=== PATIENT | male | born 1995 | race African-American/Black ===

== ENCOUNTER 2021-07-12 13:21 | Emergency (ER) | payer OTHER ==
[2021-07-12 14:33] LABS: Hematocrit 47.5 % (39.6-49.0); Lymphocytes % 20.2 % (15.3-44.8); MPV 8.1 fL (7.6-11.3); RBC Red Blood Cell Count 5.67 M/uL (4.33-5.43)
[2021-07-12 14:36] LABS: Protime INR 1.12
[2021-07-12 14:59] LABS: ALT/SGPT 18 U/L (12-78); AST/SGOT 9 U/L (15-37); Albumin 4.8 g/dL (3.4-5.0); Alkaline Phosphatase 42 U/L (45-117); BUN Blood Urea Nitrogen 14 mg/dL (7-18); Bicarbonate 28 mmol/L (21-32); Bilirubin Direct 0.3 mg/dL (0-0.2); Bilirubin Total 1.2 mg/dL (0.2-1.0); Glucose Level 97 mg/dL (74-106); Potassium 4.2 mmol/L (3.5-5.1); Sodium Level 139 mmol/L (136-145)
[2021-07-12 15:58] LABS: Barbiturates NEGATIVE (NEGATIVE); Benzodiazepines NEGATIVE (NEGATIVE); Cocaine NEGATIVE (NEGATIVE); METHAMPHETAM NEGATIVE (NEGATIVE); Methadone NEGATIVE (NEGATIVE); Opiates NEGATIVE (NEGATIVE); Phencyclidine NEGATIVE (NEGATIVE); THC Cannibis POSITIVE (NEGATIVE)
--- NOTE | 2021-07-12 17:59 | ER ---
Nurse's Notes [facility] Name: Minh Bolaños Age: 26 yrs Sex: Male : 1995 Arrival Date: 07/12/2021 Time: 13:22 Bed 7 Private MD: Diagnosis: Suicidal ideations Presentation: 07/12 13:41 Chief complaint: EMS states: Had a disagreement with family at home and went into the ww bathroom and tried to hang hisself with a jump rope. Family called EMS. Patient has scratches on bilateral arms and states they are from running through the bushes. Coronavirus screen: Client denies travel out of the [place] in the last 14 days. Ebola Screen: Patient denies travel to an Ebola-affected area in the 21 days before illness onset. Initial Sepsis Screen: Does the patient meet any 2 criteria? No. Patient's initial sepsis screen is negative. Does the patient have a suspected source of infection? No. Patient's initial sepsis screen is negative. Risk Assessment: Do you want to hurt yourself or someone else? Patient reports desire/thoughts of hurting themselves or someone else. Provider notified. Onset of symptoms was July 12, 2021. 13:41 Method Of Arrival: EMS: [facility] ww 13:41 Acuity: ESA 2 ww Historical: - Allergies: 13:43 No Known Allergies; ww - Immunization history:: Adult Immunizations up to date. - Social history:: Smoking status: Patient reports the use of cigarette tobacco products, smokes one-half pack cigarettes per day. Screenin:43 Abuse screen: Denies threats or abuse. Denies injuries from another. Nutritional ww screening: No deficits noted. Tuberculosis screening: No symptoms or risk factors identified. Fall Risk None identified. Assessment: 14:01 General: Appears in no apparent distress. Behavior is cooperative. Pain: Denies pain. ww Neuro: Level of Consciousness is awake, alert, obeys commands, Oriented to person, place, time, situation, Moves all extremities. Speech is normal. Cardiovascular: Capillary refill < 3 seconds Patient's skin is warm and dry. Chest pain is denied. Respiratory: Airway is patent Respiratory effort is even, unlabored, Respiratory pattern is regular, symmetrical. GI: No signs and/or symptoms were reported involving the gastrointestinal system. : No signs and/or symptoms were reported regarding the genitourinary system. EENT: No signs and/or symptoms were reported regarding the EENT system. Derm: Skin is healthy with good turgor, bilateral arm abrasion. abrasion to the right side of the neck. C-Collar placed. 14:05 Reassessment: Patient states the he has had ideas about hurting hisself but has never ww had the guts to go through with it. He is disappointed that today was a failed attempt. 15:05 Reassessment: Patient appears in no apparent distress at this time. No changes from ww previously documented assessment. Patient and/or family updated on plan of care and expected duration. Pain level reassessed. Patient is alert, oriented x 3, equal unlabored respirations, skin warm/dry/pink. safety assistant present, patient ate tuna sandwich. 16:44 Reassessment: Patient appears in no apparent distress at this time. No changes from ww previously documented assessment. Patient and/or family updated on plan of care and expected duration. Pain level reassessed. Patient is alert, oriented x 3, equal unlabored respirations, skin warm/dry/pink. safety assistant present. 17:05 Reassessment: Nurse to Nurse with Vinicio at [facility]. ww 17:27 General: mental health light oil operator at bedside with patient.. ww 18:17 Reassessment: Patient appears in no apparent distress at this time. No changes from ww previously documented assessment. Patient and/or family updated on plan of care and expected duration. Pain level reassessed. Patient is alert, oriented x 3, equal unlabored respirations, skin warm/dry/pink. Brother at bedside with patient. 07/13 06:36 General: Behavior is cooperative, flat, quiet, pt slept most of night, no complaints or as6 concerns, mother at bedside, sitter at door. Cardiovascular: JVD is absent Patient's skin is warm and dry. Respiratory: Respiratory effort is even, unlabored, Respiratory pattern is regular, symmetrical. 07:00 Reassessment: RECD REPORT FROM [facility]. 26YO BM P/W SI AND ATTEMPTED HANGING. PT bp MEDICALLY CLEARED, AWAITING TRANSFER TO PSYCH FACILITY. 08:40 Reassessment: Nurse to nurse with Jany at [facility]. jl7 13:03 Reassessment: MOT SIGNED. [facility] PENDING FOR TRANSPORT, 1 HR ETA. bp Psych: 07/12 13:59 [place] Suicide Severity Screening: In the past month, have you wished you were ww or wished you could go to sleep and not wake up? Patient responds "yes." "In the past month, have you actually had any thoughts of killing yourself?" Patient responds "yes." Based off the client's response additional [place]ard suicide severity screening questions to be further documented on paper forms. Subjective: Patient's mood is sad, Delusions are denied, Hallucinations are denied Having thoughts of suicide. Plan for suicide is to hang hisself. Objective: Patient is cooperative, guarded, Speech is soft. Interventions: Removed personal items and placed in bag. Patient placed in hospital gown. Searched person for dangerous items. Safety Checks: Personal items have been removed. Door is open. No visitors are present at this time. Patient uses on weekends. Commitment: Patient will be an involuntary commitment. 07/13 07:00 Menard Suicide Severity Screening: In the past month, have you wished you were bp or wished you could go to sleep and not wake up? Patient responds "yes." "In the past month, have you actually had any thoughts of killing yourself?" Patient responds "yes." "In your lifetime, have you ever done anything, started to do anything, or prepared to do anything to end your life?" Patient responds "yes." Patient reports suicidal intent within 3 past months. Subjective: Patient's mood is sad, Delusions are denied, Hallucinations are denied Having thoughts of suicide. Plan for suicide is HANGING. Objective: Patient is cooperative, guarded, Speech is normal, soft. Interventions: Removed personal items and placed in bag. Patient placed in hospital gown. Searched person for dangerous items. Safety Checks: Personal items have been removed. Door is open. No visitors are present at this time. Patient uses UNKNOWN. Commitment: Patient will be an involuntary commitment. Vital Signs: 07/12 13:52 BP 143 / 99; Pulse 74; Resp 18; Temp 98.9; Pulse Ox 100% ; Weight 70.31 kg (R); Height zm 5 ft. 10 in. (177.80 cm) (R); 07/13 06:35 BP 105 / 75; Pulse 68; Resp 18 S; Temp 97.1(TE); Pulse Ox 97% on R/A; as6 07/12 13:52 Body Mass Index 22.24 (70.31 kg, 177.80 cm) zm ED Course: 07/12 13:22 Patient arrived in ED. ds1 13:23 Helder Zhao PA is PHCP. cp 13:23 Helder Lau MD is Attending Physician. cp 13:40 Rizwana Bowman RN is Primary Nurse. ww 13:43 Triage completed. ww 13:43 Arm band placed on. ww 13:43 Patient has correct armband on for positive identification. Placed in gown. Bed in low ww position. Adult w/ patient. Valuables inventory done. 14:01 Patient is placed in psych hold. ww 14:23 Inserted saline lock: 20 gauge in left antecubital area, using aseptic technique. Blood zm collected. 15:00 Sitter at bedside. Patients iphone, shoes, shirt, and shorts have been put in personal 7 belongings bag with patient label and given to security. 15:21 called and spoke with Sarita from the [facility]/ she will page out the screener. eb 16:11 SARS-COV-2 RT PCR (Document "Date of Onset" if Symptomatic) Sent. mb 17:00 connected Vinicio Crook from [facility] with Rizwana Crook for nurse to nurse in attempt eb to get patient placement. 17:20 Alejandro from [facility] here to screen the patient. eb 17:[address] Black the psychiatrist sonar watchstander for [facility] with Helder Mccain for eb patient transfer consultation. 19:20 Primary Nurse role handed off by Rizwana Bowman RN mw2 19:25 attempted to get ALC from [facility] called and phone kept ringing no answer. mw2 21:45 attempted to get ALC from [facility] Ananya transferred me to intake and nobody mw2 answered. 07/13 02:17 Robe Toledo, RN is Primary Nurse. as6 07:26 Primary Nurse role handed off by Robe Toledo RN bp 07:26 Ashok Biswas, RN is Primary Nurse. bp 07:[address] [facility]. bd Administered Medications: 07/12 22:55 Drug: Ativan (LORazepam) 1 mg Route: IVP; Site: left antecubital; lg3 22:55 Follow up: Response: No adverse reaction lg3 Outcome: 17:58 ER care complete, transfer ordered by MD. umana 07/13 14:22 Patient left the ED. bp Signatures: Valerie Narayanan Demi ds1 Helder Zhao PA PA cp Ashutosh Bedoya, RN RN jl7 Ashok Biswas, RN RN bp Gina Caputo mw2 Katrina Lopez Lacie RN RN lg3 Robe Toledo RN RN as6 Nakul Coby mb7 Rizwana Bowman, RN RN Ayla Morelos Corrections: (The following items were deleted from the chart) 07/12 22:57 19:25 attempted to get ALC from [facility] called and phone kept ringing mw2 mw2
--- NOTE | 2021-07-12 17:59 | EDPHYS ---
Physician Documentation [facility] Name: Minh Bolaños Age: 26 yrs Sex: Male : 1995 Arrival Date: 07/12/2021 Time: 13:22 Bed 7 Private MD: ED Physician Helder Lau HPI: 07/12 13:55 This 26 yrs old Black Male presents to ER via EMS with complaints of Suicidal Ideation. cp 13:55 The patient presents to the emergency department with a history of a suicide gesture, cp wrapped jumping rope around neck. patient placed on [place] by local law enforcement after EMS was called. 13:55 Onset: The symptoms/episode began/occurred today. Past psychiatric history: Prior cp diagnosis: no previous psychiatric diagnosis known, Psychiatric medications include: none. Associated signs and symptoms: The patient has no apparent associated signs or symptoms, Pertinent negatives: abdominal pain, chest pain, fever, hallucinations, headache, substance abuse, neck pain, difficulty swallowing. Historical: - Allergies: 13:43 No Known Allergies; ww - Immunization history:: Adult Immunizations up to date. - Social history:: Smoking status: Patient reports the use of cigarette tobacco products, smokes one-half pack cigarettes per day. ROS: 14:00 Constitutional: Negative for body aches, chills, fever, poor PO intake. cp 14:00 Eyes: Negative for injury, pain, redness, and discharge. cp 14:00 Neck: Negative for pain with movement, pain at rest, stiffness. 14:00 Cardiovascular: Negative for chest pain. 14:00 Respiratory: Negative for cough, shortness of breath, wheezing. 14:00 Abdomen/GI: Negative for abdominal pain, nausea, vomiting, and diarrhea. 14:00 Back: Negative for pain at rest, pain with movement. 14:00 Neuro: Negative for altered mental status, dizziness, headache, loss of consciousness, weakness. 14:00 Psych: Positive for suicide gesture, Negative for auditory hallucinations, visual hallucinations, homicidal ideation. 14:00 All other systems are negative. Exam: 14:05 Constitutional: The patient appears in no acute distress, alert, awake, cp non-diaphoretic, non-toxic, well developed, well nourished. 14:05 Head/Face: Normocephalic, atraumatic. cp 14:05 Eyes: Periorbital structures: appear normal, Pupils: equal, round, and reactive to light and accomodation, Extraocular movements: intact throughout, Conjunctiva: normal, no exudate, no injection, Lids and lashes: appear normal, bilaterally. 14:05 ENT: External ear(s): are unremarkable, Nose: is normal, Mouth: Lips: moist, Oral mucosa: moist, Posterior pharynx: Airway: no evidence of obstruction, patent. 14:05 Neck: C-spine: vertebral tenderness, is not appreciated, crepitus, is not appreciated, ROM/movement: is normal, is supple, without pain, no range of motions limitations, no nuchal rigidity. 14:05 Chest/axilla: Inspection: normal. 14:05 Cardiovascular: Rate: normal, Rhythm: regular. 14:05 Respiratory: the patient does not display signs of respiratory distress, Respirations: normal, no use of accessory muscles, no retractions, Breath sounds: are clear throughout, no decreased breath sounds, no stridor, no wheezing. 14:05 Abdomen/GI: Exam negative for discomfort, distension, guarding, Inspection: abdomen appears normal. 14:05 Back: pain, is absent, ROM is normal. 14:05 Neuro: Orientation: to person, place \\T\\ time. Mentation: is normal, Motor: moves all fours, strength is normal, Sensation: is normal. 14:05 Psych: Behavior/mood is uncooperative, Affect is calm, Judgement / Insight is normal. Delusions/hallucinations are not present. 16:25 ECG was reviewed by the Attending Physician. cp Vital Signs: 13:52 BP 143 / 99; Pulse 74; Resp 18; Temp 98.9; Pulse Ox 100% ; Weight 70.31 kg (R); Height zm 5 ft. 10 in. (177.80 cm) (R); 07/13 06:35 BP 105 / 75; Pulse 68; Resp 18 S; Temp 97.1(TE); Pulse Ox 97% on R/A; as6 07/12 13:52 Body Mass Index 22.24 (70.31 kg, 177.80 cm) zm MDM: 07/12 13:26 Patient medically screened. cp 17:55 ED course: Patient evaluated by [facility] screening and recommendation for inpatient cp psych treatment at this time. 18:00 Data reviewed: vital signs, nurses notes, lab test result(s), EKG. cp 18:00 Test interpretation: by ED physician or midlevel provider: ECG. cp 05/ 13:49 Order name: Acetaminophen; Complete Time: 15:21 cp / 13:49 Order name: Basic Metabolic Panel; Complete Time: 15:21 cp / 15:21 Interpretation: Reviewed. cp 05/ 13:49 Order name: CBC with Diff; Complete Time: 15:21 cp / 15:21 Interpretation: Normal except: RBC 5.67. cp / 13:49 Order name: ETOH Level; Complete Time: 15:21 cp / 13:49 Order name: Hepatic Function; Complete Time: 15:21 cp / 15:21 Interpretation: Normal except: AST 9; ALK 42; BILIT 1.2; BILID 0.3. cp / 13:49 Order name: PT-INR; Complete Time: 15:21 cp / 13:49 Order name: Ptt, Activated; Complete Time: 15:21 cp 07/12 13:49 Order name: Salicylate; Complete Time: 16:14 cp 07/12 13:49 Order name: Urine Drug Screen; Complete Time: 16:14 cp / 16:14 Interpretation: Reviewed. cp / 13:49 Order name: EKG; Complete Time: 13:49 cp 07/12 15:13 Order name: SARS-COV-2 RT PCR (Document "Date of Onset" if Symptomatic); Complete Time: eb 17:52 / 16:29 Order name: Diet Regular: psych patient; Complete Time: 16:29 ss 07/13 07:46 Order name: Diet Finger Food; Complete Time: 07:47 bd 07/12 13:49 Order name: EKG - Nurse/Tech; Complete Time: 16:22 cp / 13:49 Order name: IV Saline Lock; Complete Time: 14:55 cp / 13:49 Order name: Labs collected and sent; Complete Time: 14:56 cp 07/12 13:49 Order name: Suicide Precautions; Complete Time: 13:57 cp 07/12 13:49 Order name: Suicide Screening ([place]); Complete Time: 13:57 cp 07/12 13:49 Order name: Urine Dipstick-Ancillary (obtain specimen); Complete Time: 16:11 cp 07/13 11:09 Order name: Diet Heart Healthy; Complete Time: 11:10 bd EC:25 Rate is 47 beats/min. Rhythm is regular. TX interval is normal. QRS interval is normal. cp QT interval is normal. T waves are Inverted in lead aVR. Interpreted by me. Reviewed by me. Administered Medications: 22:55 Drug: Ativan (LORazepam) 1 mg Route: IVP; Site: left antecubital; lg3 22:55 Follow up: Response: No adverse reaction lg3 Disposition Summary: 07/12/21 17:58 Transfer Ordered Transfer Location: Psych Facility cp Reason: Higher level of care cp Condition: Stable cp Problem: new cp Symptoms: have improved cp Accepting Physician: DR Black(07/13/21 14:22) bp Diagnosis - Suicidal ideations cp Forms: - Medication Reconciliation Form cp - SBAR form cp Signatures: Dispatcher [employer] EDMS Helder Zhao PA PA cp Ashok Biswas RN RN bp Yue Rea RN RN lg3 Rizwana Bowman RN RN ww Corrections: (The following items were deleted from the chart) 07/13 01:00 07/12 13:55 The patient presents to the emergency department with a history of a cp suicide gesture, wrapped jumping rope around neck, cp 07/13 14:22 07/12 17:58 DR Black cp bp
[2021-07-12] MEDS ORDERED: LORazepam 2 MG/ML VIAL ONE (22:55)
--- NOTE | 2021-07-13 08:57 | EKG ---
Test Date: 2021-07-12 Test Time: 16:20:29 Donor Relations Manager: AIDAN MEASUREMENT RESULTS: Intervals: Rate: 47 CT: 178 QRSD: 86 QT: 422 QTc: 373 Mead: P: 51 CT: 178 QRS: 62 T: 27 INTERPRETIVE STATEMENTS: Marked sinus bradycardia Abnormal ECG No previous ECG available for comparison Electronically Signed On 07-13-21 08:56:19 CDT by Wilver Beck
[2021-07-13] MEDS ORDERED: NICOTINE 21 MG/PAT TD ONE (14:02)
[2021-07-13 14:49] VITALS: BP 105/75; TEMP 97.1; O2SAT 97
== END 2021-07-13 14:22 ==
LOC: ER 13:21
DX: R45.851 Suicidal ideations (principal); Z20.822 Contact with and (suspected) exposure to COVID-19; F17.210 Nicotine dependence, cigarettes, uncomplicated
CPT/HCPCS: 93005; 85025; 80048; 36415; 80320; 80329 ×2; 85610; 80076; 85730; 80307; U0003; 96374; 99285